=== PATIENT | female | born 1985 | race Two or more races ===

== ENCOUNTER 2021-08-21 02:28 | Inpatient (IN) | payer MEDICAID, OTHER ==
[~2021-08-21] VITALS: Ht 149.9 cm; Wt 67.1 kg
[2021-08-21] MEDS ORDERED: IV NS 0.9% 1,000 ML BAG IV ONE (03:00)
[2021-08-21] MEDS ORDERED: LEVETIRACETAM (500MG) 1,000 MG in IV NS 0.9% 100 ML IV SCH (03:00)
[2021-08-21] MEDS ORDERED: ONDANSETRON HCL/PF 4 MG/2 ML VIAL IVP ONE (03:00)
--- NOTE | 2021-08-21 03:03 | NUR ---
BIBS C/O ABDOMINAL PAIN X2DAYS +N/V/D UNABLE TO HOLD KEPPRA MEDICATION DOWN 2 WITNESSED SEIZURES IN LAST 3 HOURS. PATIENT ALERT AND ORIENTED X3. AMBULATORY WITH NO NLABORED BREATHING IN BED 04 AWAITING MD CARRASCO.
[2021-08-21] MEDS ORDERED: LEVETIRACETAM (500MG) 500 MG/5 ML VIAL IV ONE ×2 (03:05→03:06)
[2021-08-21] MEDS ORDERED: ONDANSETRON HCL/PF 4 MG/2 ML VIAL ONE (03:05)
--- NOTE | 2021-08-21 03:08 | NUR ---
SEIZURE PRECAUTIONS PLACED.
--- NOTE | 2021-08-21 03:10 | NUR ---
IV LINE ESTABLISHED , LFA 20G. BLOOD OBTAINED AND SENT TO LAB
[2021-08-21] MEDS ORDERED: MORPHINE SULFATE INJ 4 MG/ML DISP.SYRIN ONE (03:24)
[2021-08-21 03:25] LABS: BASOPHILS # (AUTO) 0.1 K/uL (0.0-0.2); BASOPHILS % (AUTO) 0.8 % (0.0-2.0); HEMATOCRIT 31 % (33-45); HEMOGLOBIN 10.5 g/dL (11.5-14.8); LYMPHOCYTES # (AUTO) 1.9 K/uL (0.8-4.8); LYMPHOCYTES % (AUTO) 27.3 % (20.0-44.0); MEAN CORPUSCULAR HGB CONC 34 g/dl (31.0-36.0); MEAN CORPUSCULAR VOLUME 87 fL (82-100); MONOCYTES # (AUTO) 0.5 K/uL (0.1-1.30); MONOCYTES % (AUTO) 7.2 % (2.0-12.0); NEUTROPHILS # (AUTO) 4.4 K/uL (1.8-8.9); NEUTROPHILS % (AUTO) 62.7 % (43.0-81.0); PLATELET COUNT (AUTO) 350 K/uL (150-450); RED BLOOD CELL COUNT(AUTO) 3.56 MIL/uL (4.0-5.2)
[2021-08-21] MEDS ORDERED: MORPHINE SULFATE INJ 2 MG/ML DISP.SYRIN IV ONE (03:30)
[2021-08-21 03:39] LABS: ALBUMIN 2.5 g/dL (3.4-5.0); BILIRUBIN,TOTAL 0.1 mg/dL (0.2-1.0); CALCIUM, SERUM 6.6 mg/dL (8.5-10.1); CREATININE 0.5 mg/dL (0.6-1.3); TOTAL PROTEIN, SERUM 5.1 g/dL (6.4-8.2)
[2021-08-21 03:51] LABS: POTASSIUM 2.8 mmol/L (3.5-5.1)
--- NOTE | 2021-08-21 03:51 | NUR ---
POTASSIUM 2.8
[2021-08-21] MEDS ORDERED: POTASSIUM CL. PREMIX PERIPHER. 50 ML ONE ×2 (03:58→04:26)
[2021-08-21] MEDS ORDERED: POTASSIUM CL. PREMIX PERIPHER. 0 ML ONE (03:59)
[2021-08-21] MEDS ORDERED: POTASSIUM CHLORIDE 20 MEQ TAB.PRT.SR PO ONE ×2 (03:59→04:00)
--- NOTE | 2021-08-21 04:01 | NUR ---
PT AMBULATED TO BATHROOM, STEADY GAIT NOTED
--- NOTE | 2021-08-21 04:07 | NUR ---
EMT AT BEDSIDE FOR EKG
[2021-08-21] MEDS ORDERED: diphenhydrAMINE HCL 50 MG/ML VIAL ONE (04:16)
--- NOTE | 2021-08-21 04:20 | NUR ---
CLINICALS AND MOVE PACKET GIVEN TO ADMISSION
[2021-08-21] MEDS: POTASSIUM CL. PREMIX PERIPHER. 50 ML IV SCH ×2 (04:29→07:40)
[2021-08-21] MEDS ORDERED: diphenhydrAMINE HCL 50 MG/ML VIAL IV ONE (04:30)
--- NOTE | 2021-08-21 04:31 | NUR ---
COVID ANTIGEN SWAB COLLECTED AND SENT TO LAB
--- NOTE | 2021-08-21 04:34 | NUR ---
PT TAKEN TO CT VIA ALLEN
[2021-08-21 04:44] LABS: BILIRUBIN,URINE NEGATIVE (NEGATIVE); LEUKOCYTE ESTERASE ,URINE NEGATIVE (NEGATIVE); NITRITE, URINE NEGATIVE (NEGATIVE); PROTEIN,URINE NEGATIVE (NEGATIVE); UGLUCOSE NEGATIVE (NEGATIVE); UROBILINOGEN,URINE 0.2 EU/dL (0.2)
--- NOTE | 2021-08-21 04:49 | NUR ---
PT BACK FROM CT, RECONNECTED TO MONITOR
[2021-08-21 04:50] LABS: COLOR,URINE YELLOW (YELLOW)
[2021-08-21] MEDS ORDERED: ACETAMINOPHEN 325 MG TABLET PO PRN (06:00)
[2021-08-21] MEDS ORDERED: IV 1/2NS 1000 ML 1,000 ML IV PRN (06:00)
[2021-08-21] MEDS ORDERED: MAGNESIUM HYDROXIDE 30 ML UDC PO PRN (06:00)
[2021-08-21] MEDS ORDERED: MAG HYDROX/AL HYDROX/SIMETH 30 ML UDC PO PRN (06:00)
[2021-08-21] MEDS ORDERED: Z GUARD REMEDY 4 OZ OINT TP PRN (06:00)
[2021-08-21] MEDS ORDERED: ONDANSETRON HCL/PF 4 MG/2 ML VIAL IVP PRN (06:00)
[2021-08-21] MEDS ORDERED: ZOLPIDEM TARTRATE 5 MG TABLET PO PRN (06:00)
[2021-08-21] MEDS ORDERED: MORPHINE SULFATE INJ 2 MG/ML DISP.SYRIN IV PRN (06:00)
[2021-08-21] MEDS ORDERED: HYDROCODONE/APAP 5/325MG TABLET PO PRN (06:00)
[2021-08-21] MEDS ORDERED: MORPHINE SULFATE INJ 2 MG/ML DISP.SYRIN ONE (06:36)
--- NOTE | 2021-08-21 07:44 | NUR ---
IV removed. Catheter intact and site benign. Pressure and 4x4 applied to site. No bleeding noted.
--- NOTE | 2021-08-21 07:44 | NUR ---
Patient does not wish to proceed with medical care recommended by ROBIN wiley. Patient given information related to possible complications, up to and including , which could occur as a result of leaving the hospital at this time. Patient verbalizes understanding of risks involved due to leaving against medical advice. Patient has signed AMA form.
[2021-08-21 07:57] VITALS: BP 125/72
[2021-08-21] MEDS ORDERED: POTASSIUM CL. PREMIX PERIPHER. 50 ML IV SCH (08:30)
[2021-08-21] MEDS ORDERED: DULO60CA64 PO (08:40)
[2021-08-21] MEDS ORDERED: LEVE500T9 PO (08:40)
[2021-08-21] MEDS ORDERED: Magnesium 1GM/D5W 100ML PREMIX 100 ML IV SCH (09:00)
[2021-08-21] MEDS ORDERED: LEVETIRACETAM (500MG) 500 MG in IV NS 0.9% 100 ML IV SCH (11:00)
== END 2021-08-21 08:54 | disposition left against medical advice (07) | DRG 425 ==
LOC: ER 02:40 → TRANSITION 05:27 → TELE 07:58
PROVIDERS: ADMIT Nurse Practitioner Acute Care; ATTEND Nurse Practitioner Acute Care
DX: E87.6 Hypokalemia (principal); G40.909 Epilepsy, unspecified, not intractable, without status epilepticus; Z20.822 Contact with and (suspected) exposure to COVID-19; Z88.1 Allergy status to other antibiotic agents; Z88.8 Allergy status to other drugs, medicaments and biological substances; Z79.899 Other long term (current) drug therapy; Z87.42 Personal history of other diseases of the female genital tract; Z90.721 Acquired absence of ovaries, unilateral; N20.0 Calculus of kidney; N83.201 Unspecified ovarian cyst, right side
CPT/HCPCS: 36415; 80048-TC; 80076-TC; 83690-TC; 83735-TC; 84702-TC; 85025-TC; C9803; G0378; J1200; J1953; J2270; J2405; J3480; J3490; J7030